=== PATIENT | male | born 1975 | race Caucasian/White ===

== ENCOUNTER 2017-08-21 10:40 | Inpatient (IN) ==
[2017-08-21 11:33] LABS: Basophils # 0.1 K/mcL (0.0-0.2); Basophils % 0.5 %; Eosinophils # 0.2 K/mcL (0.0-0.6); Eosinophils % 1.5 %; Hematocrit 47.6 % (37.5-50.1); Hemoglobin 15.9 g/dL (12.9-16.9); Immature Granulocytes % 0.3 % (0-4); Lymphocytes # 2.6 K/mcL (0.6-4.6); Lymphocytes % 23.6 %; Mean Corpuscular HGB Conc 33.4 g/dL (31.6-35.5); Mean Corpuscular Hemoglobin 30.2 pg (28.0-33.3); Mean Corpuscular Volume 90.3 fL (83.0-100.0); Monocytes # 0.8 K/mcL (0.0-1.3); Monocytes % 7.2 %; Neutrophils # 7.3 K/mcL (1.6-8.9); Platelet Count 329 K/mcL (140-400); Red Blood Count 5.27 M/mcL (4.19-5.50); Red Cell Distribution Width 13.3 % (11.5-14.5); Segmented Neutrophils % 66.9 %
[2017-08-21 11:38] LABS: Prothrombin Time 11.1 Seconds (9.4-12.1)
[2017-08-21 11:40] LABS: Activated Partial Thrombo Time 31.5 Seconds (26.0-36.0)
--- NOTE | 2017-08-21 11:43 | Electrocardiograph Report ---
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
[2017-08-21 11:56] LABS: Troponin I 0.03 ng/mL (< 0.04)
[2017-08-21 12:13] LABS: BUN/Creatinine Ratio 12 (6-26); Blood Urea Nitrogen 12 mg/dL (6-20); Calcium 9.5 mg/dL (8.6-10.3); Carbon Dioxide 27 mEq/L (23-29); Chloride 107 mEq/L (98-107); Glucose 116 mg/dL (70-105); Osmolality,Calculated 289 (280-300); Potassium 4.4 mEq/L (3.5-5.1); Sodium 139 mEq/L (136-145); eGFR For African Americans > 60 (> 60); eGFR For Non-African Americans > 60 (> 60)
--- NOTE | 2017-08-21 12:22 | Emergency Department Note ---
Disposition Clinical Impression: Chest pain, rule out acute myocardial infarction Disposition: Admitted As Inpatient Condition: Fair Chest Pain HPI - General Chief Complaint: ED Chest Pain Stated Complaint: CP x 1 week Time Seen by Provider: 08/21/17 11:09 Source: patient Limitations: no limitations Vital Signs Reviewed: Yes Nursing Notes Reviewed: Yes - History of Present Illness HPI Narrative: 42-year-old male presents emergency Department with concerns of chest pain. Patient states pain is exertional and improves with rest. No history of cardiac disease in the past. Patient states symptoms have been increasing over the past week. He reports associated diaphoresis and nausea. Denies syncopal event. Chest pain is a pressure in the center of his chest that radiates to his bilateral arms. Severity scale (1-10): 0 - Related Data Home Medications Medication Instructions Recorded Confirmed No Known Home Drugs 08/21/17 08/21/17 Allergies Allergy/AdvReac Type Severity Reaction Status Date / Time azithromycin [From Zithromax] Allergy Rash Verified 08/21/17 10:47 All systems ED: reviewed and negative except as stated. Review of Systems: As Per HPI Chest Pain PMH - Past Medical History Medical history: Reports: no medical history Psychiatric history: Reports: no psych history - Social History Smoking Status: Current every day smoker Alcohol use: Reports: none Drug use: Reports: none Physical Exam General: Alert and in no acute distress Skin: Warm, dry, intact Head: Normocephalic and atraumatic Neck: Supple, trachea midline and no tenderness Cardiovascular: RRR, no murmur, normal perfusion Respiratory: CTAB, no wheezing, cough, or respiratory distress Musculoskeletal: Normal strength, no tenderness, swelling or deformity GI: Soft, nontender, nondistended. Bowel sounds present Neuro: A&O to person, place, time and situation. No focal deficits noted on exam Psychiatric: cooperative and appropriate mood and affect. - General Limitations: no limitations General appearance: alert Course Vital Signs Temperature 98.5 F 08/21/17 10:48 Pulse Rate 62 08/21/17 10:48 Respiratory Rate 20 08/21/17 10:48 Blood Pressure 152/78 08/21/17 10:48 O2 Sat by Pulse Oximetry 98 08/21/17 10:48 Temperature 98.2 F 08/22/17 11:12 Pulse Rate 67 08/22/17 11:12 Respiratory Rate 20 08/22/17 11:12 Blood Pressure 145/84 08/22/17 11:12 O2 Sat by Pulse Oximetry 95 08/22/17 11:12 Oxygen Delivery Oxygen Delivery Room Air Chest Pain - MDM Narrative Medical decision making narrative: Patient has a negative initial troponin. EKG did not show evidence of STEMI. - Medical Records Medical records reviewed: Yes I reviewed the patient's medical records. - Lab Data Lab results reviewed: Yes I reviewed the patient's lab results. Result diagrams: 08/21/17 11:19 08/21/17 11:19 Lab Results 08/21/17 08/21/17 08/21/17 Range/Units 11:19 11:19 11:19 WBC 10.9 (4.3-11.1) K/mcL RBC 5.27 (4.19-5.50) M/mcL Hgb 15.9 (12.9-16.9) g/dL Hct 47.6 (37.5-50.1) % MCV 90.3 (83.0-100.0) fL MCH 30.2 (28.0-33.3) pg MCHC 33.4 (31.6-35.5) g/dL RDW 13.3 (11.5-14.5) % Plt Count 329 (140-400) K/mcL MPV 10.0 (9.4-12.4) fL Immature Gran % 0.3 (0-4) % Seg Neutrophils % 66.9 % Lymphocytes % 23.6 % Monocytes % 7.2 % Eosinophils % 1.5 % Basophils % 0.5 % Neutrophils # 7.3 (1.6-8.9) K/mcL Lymphocytes # 2.6 (0.6-4.6) K/mcL Monocytes # 0.8 (0.0-1.3) K/mcL Eosinophils # 0.2 (0.0-0.6) K/mcL Basophils # 0.1 (0.0-0.2) K/mcL PT 11.1 (9.4-12.1) Seconds INR 1.0 APTT 31.5 (26.0-36.0) Seconds Sodium 139 (136-145) mEq/L Potassium 4.4 (3.5-5.1) mEq/L Chloride 107 (98-107) mEq/L Carbon Dioxide 27 (23-29) mEq/L BUN 12 (6-20) mg/dL Creatinine 1.03 (0.70-1.30) mg/dL Est GFR ( Amer) > 60 (> 60) Est GFR (Non-Af Amer) > 60 (> 60) BUN/Creatinine Ratio 12 (6-26) Glucose 116 H (70-105) mg/dL Calculated Osmolality 289 (280-300) Calcium 9.5 (8.6-10.3) mg/dL Troponin I 0.03 (< 0.04) ng/mL - Radiology Data Radiology results reviewed: Yes I reviewed the patient's radiology results. - EKG Data EKG attestation: Yes I reviewed and interpreted this EKG. EKG results narrative: ECG - interpreted by ED physician. Rate 65, normal sinus rhythm, no STEMI. Biphasic T-wave in lead V2 Heart Score - Score History: Highly Suspicious EKG: Normal Age: Less than 45 Risk Factors: Equal/Greater than 3 risk factor or history of atherosclerotic disease Troponin: Less than normal limit HEART Score Total: 4
[2017-08-21] MEDS ORDERED: Aspirin 81 MG TAB.CHEW PO ONE (12:23)
[2017-08-21] MEDS ORDERED: Naloxone 0.4 MG/ML INJ IVP PRN (12:58)
--- NOTE | 2017-08-21 13:07 | Internal Med History&Physical ---
<Nick Ingram J - Last Filed: 08/21/17 13:00> Date of Encounter: 08/21/17 Time of Encounter: 13:00 Internal Medicine - H&P: [facility] Chief complaint: chest pain Admitted From: Home Plans for Post Hospital Care: Home History of present illness: Mr. Wilson is a 42 year old male with no prior past medical history. Presents to [facility] ED with a chief complaint of one-week history of intermittent chest pain. He states that he has been having occasional chest pain with exertion and eases with rest. He notes that there are times he is able to perform physical activity without any discomfort. However when he experiences the pain it is sharp and 10/10 with radiation to the BL shoulder and arms. He is reporting shortness of breath, diaphoresis and nausea. He has no prior cardiac hx and has never had a thorough cardiac workup. He is currently chest pain free at rest. His CXR is negative for acute pulmonary disease, initial troponin is negative. EKG does show some ST depression in V3 but is not noted in any other leads. No prior EKG for comparison. Past Med Surg Social Fam HX - Past Medical History Medical history: no medical history Psychiatric history: no psych history - Social History Smoking Status: Current every day smoker Smokeless Tobacco Status: No Alcohol use: none Drug use: none - Family History Mother Hx Family Cardiac Disorders: Yes ([place]) Hx Family Endocrine Disorder: Yes ([place]) Internal Medicine - H&P: Meds No Known Home Drugs 08/21/17 [History] 3 Allergy/AdvReac Type Severity Reaction Status Date / Time azithromycin [From Zithromax] Allergy Rash Verified 08/21/17 10:47 All Systems PM: A 10-system review of systems was performed and is negative for pertinent findings except as documented above in the HPI. Review of systems: REVIEW OF SYSTEMS GENERAL: Negative for any nausea, vomiting, fevers, chills, or weight loss. Positive for diaphoresis and nausea NEUROLOGIC: Negative for any blurry vision, blind spots, double vision, facial asymmetry, dysphagia, dysarthria, hemiparesis, hemisensory deficits, vertigo, ataxia. HEENT: Negative for any head trauma, neck trauma, neck stiffness, photophobia, phonophobia, sinusitis, rhinitis. CARDIAC: Negative for any paroxysmal nocturnal dyspnea, peripheral edema. Positive for chest pain which worsens with exertion and improves rest. Additionally reporting shortness of breath PULMONARY: Negative for any wheezing, COPD, or TB exposure. GASTROINTESTINAL: Negative for any abdominal pain, nausea, vomiting, bright red blood per rectum, melena. GENITOURINARY: Negative for any dysuria, hematuria, incontinence. INTEGUMENTARY: Negative for any rashes, cuts, insect bites. RHEUMATOLOGIC: Negative for any joint pains, photosensitive rashes, history of vasculitis or kidney problems. HEMATOLOGIC: Negative for any abnormal bruising, frequent infections or bleeding. - Constitutional Vitals: Temp Pulse Resp BP Pulse Ox 98.5 F 68 20 136/88 98 08/21/17 10:48 08/21/17 11:36 08/21/17 10:48 08/21/17 11:36 08/21/17 10:48 General appearance: Present: cooperative, A&O X 3, no acute distress Exam: PHYSICAL EXAMINATION: GENERAL: The patient is a well-developed, well-nourished male in no apparent distress. He is alert and oriented x3. HEENT: Head is normocephalic and atraumatic. Extraocular muscles are intact. Pupils are equal, round, and reactive to light and accommodation. NECK: Supple. No carotid bruits. No lymphadenopathy or thyromegaly. LUNGS: Clear to auscultation B/L AP and L. HEART: Regular rate and rhythm without murmur. ABDOMEN: Soft, nontender, and nondistended. Positive bowel sounds. No hepatosplenomegaly was noted. EXTREMITIES: Without any cyanosis, clubbing, rash, lesions or edema. NEUROLOGIC: Mild left-sided facial droop and paralysis noted. 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 SKIN: No ulceration or induration present. Internal Med - H&P Results - Labs CBC & Chem 7: 08/21/17 11:19 08/21/17 11:19 - EKG Data -: EKG Interpreted by Myself EKG shows normal: sinus rhythm - Impressions Impressions Chest X-Ray 08/21/17 11:10 IMPRESSION: No acute findings. D/ / Emilee Ridley MD / Emilee Ridley MD Interpreting Provider: Emilee Ridley MD - Assessment and plan (1) Chest pain Current Visit: Yes Status: Acute Assessment and plan: ASSESSMENT: Presents today with one-week history of exertional chest pain. He is reporting sharp chest pain with radiation to B/L shoulder and arms with activity and notes that is does improve with rest. He has never had an LHC but reports a TTE and stress a few years ago which were unremarkable. No history of CAD. His CXR was negative for an acute pulmonary process and his initial troponin was negative at 0.03. The EKG did show some ST depression in V3 but not other leads. No prior EKG for comparison. PLAN: - cardiac enzymes x 2 q 6 hr - EKG now and in AM - ASA - Simvastatin - O2 by NC to keep SpO2 greater than 92% - CBCD, BMP in AM - Fasting lipids - Heparin 5000 U SQ BID - 2D Echo - Cardiology consult-pending results of further cardiac workup Qualifiers: Chest pain type: unspecified Qualified Code(s): R07.9 - Chest pain, unspecified (2) DVT prophylaxis Current Visit: Yes Status: Acute Assessment and plan: Heparin 5000 units SC BID - Time Spent With Patient Total time spent is greater than 50% in coordination of care (as documented) at patient's floor/unit and/or counseling patient: 25 - 35 minutes <José Miguel Rodriguez P - Last Filed: 08/21/17 21:34> Date of Encounter: 08/21/17 Internal Medicine - H&P: HPI History of present illness: Mr. Wilson is a 42 year old male All Systems PM: A 10-system review of systems was performed and is negative for pertinent findings except as documented above in the HPI. - Constitutional Vitals: Temp Pulse Resp BP Pulse Ox 97.6 F 86 18 112/67 93 08/21/17 19:02 08/21/17 19:02 08/21/17 19:02 08/21/17 19:02 08/21/17 19:02 Internal Med - H&P Results - Labs CBC & Chem 7: 08/21/17 11:19 04/17/18 11:19 Labs: Cardiac Enzymes 08/21/17 Range/Units 15:38 Troponin I 0.03 (< 0.04) ng/mL - Attending Attestation I performed a history and physical exam of the patient and discussed his management with CLOTH FOLDER MACHINE. I reviewed the CLOTH FOLDER MACHINE's note and agree with the documented findings and plan of care. Briefly, patient is a 42 y/o WM who presented to ED with 1 -week history of intermittent chest pain with exertion. Also, had some SOB, diaphoresis, and nausea. He has no cardiac history. He is currently chest pain free during my interview. Will admit for ACS rule-out with trending of troponin and repeat EKG in AM. PE: Gen - Awake, alert, NAD HEENT - NCAT, PERRLA, EOMI, hearing grossly intact, oropharynx benign CV - RRR, normal S1 and S2, no M/R/G, no BLE edema Resp - CTAB, no W/R/R, normal WOB Skin - Warm, dry, no rashes/lesions/ulcers Psych - Normal mood and affect, no depression or anxiety José Miguel Rodriguez MD - Assessment and plan (1) Chest pain Current Visit: No Status: Acute Qualifiers: Chest pain type: unspecified Qualified Code(s): R07.9 - Chest pain, unspecified (2) DVT prophylaxis Current Visit: No Status: Acute - Time Spent With Patient Total time spent is greater than 50% in coordination of care (as documented) at patient's floor/unit and/or counseling patient:
[2017-08-21] MEDS: *HR* Heparin 5,000 UNIT/ML VIAL SQ SCH (18:19)
[2017-08-22] MEDS: *HR* Heparin 5,000 UNIT/ML VIAL SQ SCH ×2 (05:32→18:00)
[2017-08-22 05:42] LABS: Chol/HDL Ratio 5.2 (0-4.9)
[2017-08-22] MEDS ORDERED: Regadenoson 0.4 MG/5 ML SYRINGE IVP ONE (09:01)
[2017-08-22] MEDS: Aspirin 81 MG TAB.CHEW PO SCH (11:47)
--- NOTE | 2017-08-22 13:58 | Cardiology Consult Note ---
Date of Encounter: 08/22/17 Time of Encounter: 13:45 Assessment and Plan (1) Abnormal stress test Current Visit: Yes Status: Acute Presented with intermittent chest pain over the past week, worse on exertion, radiates to BL upper extremities, associated with dyspnea, nausea, diaphoresis. Troponin negative x 2. EKG no significant ischemic change. Underwent stress test this AM, ST depression in the anterolateral and inferior leads in recovery suggestive of ischemia. Gated EF 49%. Large sized, moderate to absent perfusion defect, mostly reversible involving mid anterior, mid anteroseptum, all apical segments, and apex segments strongly suggestive of ischemia. SDS 15. Recommend [facility]. R/B/A discussed. Pt agrees to proceed. [facility] today. Risk factors for CAD include tobacco abuse and family hx. On ASA. Start Statin and BB. (2) Chest pain Current Visit: Yes Status: Acute As above, negative troponin, but with abnormal stress. [facility] today. Qualifiers: Chest pain type: unspecified Qualified Code(s): R07.9 - Chest pain, unspecified (3) Atrial tachycardia Current Visit: Yes Status: Acute PAT noted during stress and telemetry. Add BB. Discussion w patient/family: The assessment and plan as outlined above was discussed with the patient and/or family members who expressed understanding and agreement. All questions were answered. Thank you for involving us in the care of your patient. Please call with any questions. History of Present Illness Consult date: 08/22/17 Requesting physician: Smiley Crisostomo Consult reason: abnormal stress test Chief complaint: chest pain History of present illness: Mr. Wilson is a 42 year old male with PMH of tobacco abuse that presented to ED with chief complaint of one-week history of intermittent chest pain. He states that he has been having occasional chest pain with exertion and eases with rest. He notes that there are times he is able to perform physical activity without any discomfort. However when he experiences the pain it is sharp and 10/10 with radiation to the BL shoulder and arms. He is reporting shortness of breath, diaphoresis and nausea. He has no prior cardiac hx. Reports he had a negative stress test approximately 3 years ago. Troponins are negative, TTE EF preserved. Underwent stress test this AM, ST depression in the anterolateral and inferior leads in recovery suggestive of ischemia. Gated EF 49 %. Large sized, moderate to absent perfusion defect, mostly reversible involving mid anterior, mid anteroseptum, all apical segments, and apex segments strongly suggestive of ischemia. SDS 15. Cardiology consulted for further recs. Currently chest pain free. Past Med Surg Social Fam HX - Past Medical History Medical history: no medical history Psychiatric history: no psych history - Past Surgical History Surgical History: herniorrhaphy - Social History Smoking Status: Current every day smoker Smokeless Tobacco Status: No Alcohol use: none Drug use: none - Family History Mother Hx Family Cardiac Disorders: Yes ([place]) Hx Family Endocrine Disorder: Yes ([place]) Medications and Allergies No Known Home Drugs 08/21/17 [History] 3 Allergy/AdvReac Type Severity Reaction Status Date / Time azithromycin [From Zithromax] Allergy Rash Verified 08/21/17 10:47 All Systems Review: The remainder of the systems were reviewed and are negative - Cardiovascular Cardiovascular: as per HPI, chest pain at rest, chest pain with exertion, diaphoresis, dyspnea on exertion, radiating jaw, neck or arm pain - Respiratory Respiratory: dyspnea - Gastrointestinal Gastrointestinal: nausea Physical Examination Vital Signs, Last 4 Hours Temp Pulse Resp BP Pulse Ox 08/22/17 11:12 98.2 F 67 20 145/84 95 Vital Signs Temp Pulse Resp BP Pulse Ox 08/22/17 11:12 98.2 F 67 20 145/84 95 08/22/17 07:18 98.4 F 60 20 128/73 97 08/22/17 04:27 97.5 F L 60 19 110/71 95 08/21/17 22:42 98.4 F 74 19 101/62 97 08/21/17 19:02 97.6 F 86 18 112/67 93 Intake and Output 08/21/17 08/22/17 08/22/17 23:59 07:59 15:59 Intake Total 0 / 0 Balance 0 / 0 Intake: Oral 0 / 0 Other: Meal npo # Voids 2 Weight 103.5 kg Patient Weight 08/22/17 23:59 Weight 103.5 kg General: Conversant, No Apparent Distress HEENT: Atraumatic, Normocephaly, Mucus Membranes Moist Neck: No JVD, Normal carotid pulses Cardiac: Reg Rate and Rhythm, Normal S1 and S2, No Murmur Lungs: Normal Breath Sounds, No Wheeze, Rales, Rhonchi Neuro: Alert and responsive, No focal deficits noted Abdomen: Soft, Non-Tender Skin: No rashes noted on visualized skin Musculoskeletal: No Chest Wall Tenderness Extremities: No Clubbing, No Cyanosis, No Edema, Normal Pulses Results 08/21/17 11:19 08/21/17 11:19 Lab Results 08/21/17 08/21/17 15:38 21:56 Troponin I 0.03 < 0.03 Cardiac Enzymes 08/21/17 08/21/17 Range/Units 21:56 15:38 Troponin I < 0.03 0.03 (< 0.04) ng/mL Impressions Echocardiogram 08/22/17 12:55 Impressions: LVEF 55-60%. Normal LV chamber size, wall thickness and function. Normal right ventricular structure and function. No evidence of pulmonary hypertension. No significant valvular dysfunction. Left Ventricular Wall Motion: Rest Echo Findings All wall segments showed normal motion. Findings: Study Quality * Technically adequate exam. ECG Findings * Sinus bradycardia. Left Ventricle * LVEF 55-60%. * Normal LV chamber size, wall thickness and function. Right Ventricle * Normal right ventricular structure and function. Left Atrium * Mild to moderately dilated left atrium. Right Atrium * Mildly dilated right atrium. Interatrial Septum * Interatrial septum not well evaluated. Aortic Valve * Trileaflet aortic valve with normal function. * No aortic stenosis. * No aortic regurgitation. Mitral Valve * Normal mitral valve structure and function. * No mitral stenosis. * Trace mitral regurgitation. Tricuspid Valve * Normal tricuspid valve structure and function. * Trace tricuspid regurgitation. * No evidence of pulmonary hypertension. Pulmonic Valve * Normal pulmonic valve structure and function. * No pulmonic regurgitation. Aorta * Normally sized aortic root. Pericardium * The pericardium appears normal. IVC * Normal IVC dimensions and inspiratory collapse. Pulmonary Artery * Normal visualized portions of the main pulmonary artery. Active Medications Aspirin (Aspirin) 81 mg PO DAILY [facility] Stop: 02/21/18 09:01 Last Admin: 08/22/17 11:47 Dose: 81 mg Heparin Sodium (Porcine) (Heparin) 5,000 unit SQ Q12HCO [facility] Stop: 02/20/18 18:01 Last Admin: 08/22/17 05:32 Dose: 5,000 unit Naloxone HCl (Narcan) 0.4 mg IVP Q2MIN PRN PRN Reason: SEE COMMENTS Stop: 02/20/18 12:59 - Imaging and Cardiology Stress Test: report reviewed Echo: report reviewed - EKG Interpretation EKG results cardiology: personally reviewed, other (12 hr tele AVG HR 67, SR, episodes of atrial tach.) Consult Discharge Plan - Plan Referrals: Jacky Roque MD [Primary Care Provider] -
--- NOTE | 2017-08-22 15:18 | Internal Med Progress Note ---
Date of Encounter: 08/22/17 Time of Encounter: 15:13 - Assessment and plan (1) Chest pain Current Visit: Yes Status: Acute Assessment and plan: ASSESSMENT: Presented with one-week history of exertional chest pain. He was reporting sharp chest pain with radiation to B/L shoulder and arms with activity and noted that did improve with rest. He has never had an C but reported a TTE and stress a few years ago which were unremarkable. No history of CAD. CXR was negative for an acute pulmonary process and troponin negative at 0.03. The EKG did show some ST depression in V3 but not in other leads. No prior EKG for comparison. PLAN: - cardiac enzymes negative - EKG - ASA - Simvastatin - O2 by NC to keep SpO2 greater than 92% - CBCD, BMP reviewed - Fasting lipids reviewed - Heparin 5000 U SQ BID - 2D Echo - Cardiology consult for abnormal stress test with [facility] scheduled Qualifiers: Chest pain type: unspecified Qualified Code(s): R07.9 - Chest pain, unspecified (2) DVT prophylaxis Current Visit: No Status: Acute Assessment and plan: Heparin 5000 units SC (3) Hypokalemia Current Visit: Yes Status: Acute Assessment and plan: replaced and recheck - Time Spent With Patient Total time spent is greater than 50% in coordination of care (as documented) at patient's floor/unit and/or counseling patient: - Subjective Interval history: Patient resting in bed quietly. Still with intermittent chest pain at times. Abnormal stress test resulted and cardiology consult it. They discussed left heart cath with the patient and he has agreed. - Constitutional Vitals: Temp Pulse Resp BP Pulse Ox 98.1 F 56 18 126/77 94 08/22/17 14:53 08/22/17 14:53 08/22/17 14:53 08/22/17 14:53 08/22/17 14:53 General appearance: Present: cooperative, A&O X 3, pleasant, answers questions appropriately - Head Head exam: Present: atraumatic, normocephalic - Eye Eye exam: Present: PERRL, conjuntiva pink, sclera anicteric Pupils: Present: PERRL - Neck Neck exam general surgery: Present: supple, trachea midline. Absent: lymphadenopathy - Respiratory Respiratory exam: Present: CTAB. Absent: accessory muscle use, rales, rhonchi, wheezes - Cardiovascular Cardiovascular exam: Present: RRR, +S1, +S2. Absent: diastolic murmur, gallop, rubs, systolic murmur - GI/Abdominal GI/Abdominal exam: Present: normal bowel sounds, soft, no peritoneal signs. Absent: distended, tenderness - Extremities Exam Extremities exam: Present: warm, radial pulses palpable and symmetrical. Absent : calf tenderness, cyanotic, pedal edema - Neurological Exam Neurological exam: Present: alert, CN II-XII intact, oriented X3, no focal deficits. Absent: pronater drift, facial droop, speech deficit - Skin Skin exam: Present: dry, intact, normal color, warm Internal Medicine: Result - Labs CBC & Chem 7: 08/21/17 11:19 08/21/17 11:19 Labs: Cardiac Enzymes 08/21/17 08/21/17 Range/Units 15:38 21:56 Troponin I 0.03 < 0.03 (< 0.04) ng/mL - ABG Interpretation ABG results: PT/INR, D-dimer PT 11.1 Seconds (9.4-12.1) 08/21/17 11:19 - Impressions Impressions Echocardiogram 08/22/17 12:55 Impressions: LVEF 55-60%. Normal LV chamber size, wall thickness and function. Normal right ventricular structure and function. No evidence of pulmonary hypertension. No significant valvular dysfunction. Left Ventricular Wall Motion: Rest Echo Findings All wall segments showed normal motion. Findings: Study Quality * Technically adequate exam. ECG Findings * Sinus bradycardia. Left Ventricle * LVEF 55-60%. * Normal LV chamber size, wall thickness and function. Right Ventricle * Normal right ventricular structure and function. Left Atrium * Mild to moderately dilated left atrium. Right Atrium * Mildly dilated right atrium. Interatrial Septum * Interatrial septum not well evaluated. Aortic Valve * Trileaflet aortic valve with normal function. * No aortic stenosis. * No aortic regurgitation. Mitral Valve * Normal mitral valve structure and function. * No mitral stenosis. * Trace mitral regurgitation. Tricuspid Valve * Normal tricuspid valve structure and function. * Trace tricuspid regurgitation. * No evidence of pulmonary hypertension. Pulmonic Valve * Normal pulmonic valve structure and function. * No pulmonic regurgitation. Aorta * Normally sized aortic root. Pericardium * The pericardium appears normal. IVC * Normal IVC dimensions and inspiratory collapse. Pulmonary Artery * Normal visualized portions of the main pulmonary artery. Consult Discharge Plan - Plan Referrals: Jacky Roque MD [Primary Care Provider] -
[2017-08-22] MEDS ORDERED: Heparin 1,000 UNITS/500 mL 500 ML ONE (16:03)
[2017-08-22] MEDS ORDERED: *HR* Heparin 10,000 UNIT/10 ML VIAL ONE (16:03)
[2017-08-22] MEDS ORDERED: ISOVUE-370 200 ML INFUS..BTL IV ONE (16:03)
[2017-08-22] MEDS ORDERED: 0.9 % Sodium Chloride 1,000 ML ONE (16:04)
[2017-08-22] MEDS ORDERED: Nitroglycerin 1,000 MCG/10 ML VIAL IV ONE (16:04)
--- NOTE | 2017-08-22 16:34 | Pre-Sedation Evaluation ---
Pre-sedation evaluation - Pre-sedation checklist Date of procedure: 08/22/17 Procedure: [facility] Recent Vitals: Last Vital Signs Temp 98.1 F 08/22/17 14:53 Pulse 56 08/22/17 14:53 Resp 18 08/22/17 14:53 BP 126/77 08/22/17 14:53 Pulse Ox 94 08/22/17 14:53 H&P (including ROS) documented in medical record: Yes Previous reaction to sedatives/anesthetics: No Dietary Status: NPO after Midnight Airway Assessment: Patient can open mouth completely, TMJ function normal, Micrognathia (under-bite, receding chin) absent, Neck with adequate range of motion Dentition: No loose teeth or bridges Possible difficult airway: No ASA Classification *see protocol: CLASS II-Mild systemic disease Plan of Care: Pt appropriate candidate for procedure/moderate/conscious sedation , Risks/benefits of procedure/sedation discussed w/ patient/family
[2017-08-22] MEDS ORDERED: *HR* Bivalirudin 250 MG VIAL IVC ONE (16:38)
[2017-08-22] MEDS ORDERED: *HR* Midazolam HCl 2 MG/2 ML VIAL ONE (16:38)
[2017-08-22] MEDS ORDERED: *HR* FentaNYL (PF) 100 MCG/2 ML VIAL ONE (16:39)
[2017-08-22] MEDS ORDERED: *HR* Ticagrelor 90 MG TABLET ONE (17:08)
--- NOTE | 2017-08-22 17:36 | Invasive Diagnostic Lab Proc ---
Name: Patrick Wilson Date of Study: 08/22/2017 Date: 1975 Ht: 72.8in Medical Record#: [id number] Age: 42 Wt: 227.08lb Gender: Male BSA: 2.27 Order #: [id number] BMI: 30.09 Physicians Procedure Physician: Lianet Cao MD, [facility] Referring MD: Referring MD: Staff Name Position Time In Cathryn Wilson RN Monitor 04:33 PM Jennifer Grant RT (R) Scrub 04:33 PM Jt Rowell RN Monitor 04:35 PM Cathryn Wilson RN Funeral Prearrangement Counselor 04:36 PM Ananya Llanes RN Funeral Prearrangement Counselor 05:16 PM Indications Indication Abnormal Test - Stress Procedures Performed Procedure L HRT ARTERY/VENTRICLE ANGIO PRQ CARD MARGRET STENT W/ANGIO 1 VSL Pre-Procedure Checklist Informed consent is complete signed and on chart. H&P is on chart. ID band is on and ID verified with patient. Patient NPO for procedure The procedure was described for the patient and questions were answered. ECG is on chart. Plan of Care Patient will tolerate the procedure without complications. Adequate level of comfort will be maintained. Hemodynamics will remain stable Patient will recover from procedure without complications. Respiratory function will be maintained. Cardiac rhythm will remain stable. Patient temperature will be maintained. Patient and/or family have verbalized understanding of the procedure. Patient Education Chief Complaint/Reason for Test: Cardiac Cath Developmental Category: Adult (18-64 years) Developmentally Appropriate for Age: Yes Learning Barriers: None Education Needs: Procedure Education Method: Verbal Information Taught: Cardiac Cath Educational Evaluation: Able to repeat information Intravenous Access Time IV Size Location DC'd Fluid/Drip Rate Units RN 20g 1 /" Patent On Arrival Rt Antecubital 0.9NaCl ml/hr Allergies azithromycin Vital Signs Time BP (mmHg) HR (bpm) O2 Sat. RR (bpm) LOC 04:38 PM / % 5 = Fully awake and oriented or at pre-proc level 04:38 PM / % 4 = Oriented but drowsy 04:53 PM / % 4 = Oriented but drowsy 04:38 PM 132 / 78 60 97 % 04:42 PM 132 / 71 64 96 % 04:47 PM 125 / 72 71 96 % 04:52 PM 127 / 71 62 96 % 04:57 PM 134 / 72 63 96 % 05:02 PM 123 / 67 67 96 % 05:07 PM 124 / 69 70 95 % 05:12 PM 127 / 71 62 98 % 05:17 PM 124 / 64 56 98 % Procedural Medications Time Medication Dose Units Method Given By 04:36 PM Oxygen 2 L/min nasal cannula Cathryn Wilson RN 04:41 PM Versed 2 mg Intravenous Cathryn Wilson RN 04:41 PM Fentanyl 50 mcg Intravenous Cathryn Wilson RN 04:49 PM Benadryl 25 mg Intravenous Cathryn Wilson RN 04:51 PM Lidocaine 2% 13 ml Subcutaneous Lianet Cao MD, FAC 04:57 PM Angiomax 0.75mg/kg bolus: 16 ml Intravenous Cathryn Wilson RN 04:58 PM Angiomax 1.75mg/kg/hr: 37 ml/hr Intravenous Cathryn Wilson RN 05:06 PM Nitroglycerin 200 mcg Intracoronary Lianet Cao MD, FACC 05:13 PM Reopro Bolus: 12.9 ml Intravenous Cathryn Wilson RN 05:13 PM Brilinta 180 mg Orally Cathryn Wilson RN ASA Classification: CLASS II- Mild systemic disease (i.e. well-controlled diabetes, hypertension, asthma, cigarette smoking) Nanci Score Preprocedure Postprocedure Activity 2- Moves 4 extremities sustained head lift Activity 2- Moves 4 extremities sustained head lift Circulation 2- SBP +/= 20 points of pre-anesthetic level Circulation 2- SBP +/= 20 points of pre-anesthetic level Consciousness 2- Awake and alert oriented x 3 Consciousness 2- Awake and alert oriented x 3 O2 Saturation 2- Able to maintain O2 satruation of 92% on room air O2 Saturation 2- Able to maintain O2 satruation of 92% on room air Respiratory 2- Able to deep breathe and cough well Respiratory 2- Able to deep breathe and cough well Total Score 10 Total Score 10 Contrast Agent: Isovue Diagnostic Contrast: 74 ml Total Contrast: 74 ml Fluoro Dose: 332 mGy Procedure Log Time Note Enter By 04:18 PM Pt arrived to label paster 2 at 16:18 fainabel air 04:33 PM Pt arrived to label paster 2 at 16:33 oh 04:33 PM Cathryn Wilson RN Position: Monitor Time in: 16:33 oh 04:33 PM Juanita, Jennifer RT (R) Position: Scrub Time in: 16:33 04:33 PM Patient charges- Angio tray pack, Navilyst 3mm J, Pulse Oximetry and ACIST tubing and transducer 04:33 PM Physican paged/called 16:33. 04:33 PM Physican responded and notified patient is ready 16:33 04:33 PM Physician arrived 16:33 :33 PM Meet and greet completed 04:33 PM Sign in performed according to hospital policy. 04:33 PM Procedure start 16:33 04:33 PM CathStat 04:36 PM Jt Rowell RN Position: Monitor Time in: 16:35 04:36 PM Cathryn Wilson RN Position: Funeral Prearrangement Counselor [facility]: 16:36 [facility] 04[facility] PM Time: 16:36 Oxygen on at 2 L/min per nasal cannula by Cathryn Wilson RN [email or web address] 04:37 PM Vitals capture started with the following parameters, Patient=Adult, Interval=5 min, Initial Nmqjfnzq=128 mmHg, Deflation Rate=5 mmHg, Cuff placed on Right Arm 04:37 PM Recorded ECG: HR=63 Condition=Condition 1 04:38 PM HR=60 bpm, JMAG=842/78 mmhg, SpO2=97.0 %, Comment=nsr 04:38 PM Time: 16:38 Patient comfortable and pain free: Yes [facility] 04:38 PM Time: 16:38LOC: 5 = Fully awake and oriented or at pre-proc level [facility] 04:39 PM Clinical Presentation: Unstable angina 04:39 PM ASA Class CLASS II- Mild systemic disease (i.e. well-controlled diabetes, hypertension, asthma, cigarette smoking) [facility] 04:41 PM Time: 16:41 Versed 2 mg Intravenous Given by Cathryn Wilson RN dina 04:41 PM Time: 16:41 Fentanyl 50 mcg Intravenous Given by Cathryn Wilson RN 04:42 PM HR=64 bpm, JXTQ=397/71 mmhg, SpO2=96.0 %, Comment=nsr 04:47 PM HR=71 bpm, GWFB=770/72 mmhg, SpO2=96.0 %, Comment=nsr 04:48 PM Time out performed according to hospital policy tsoumm 04:49 PM Time: 16:49 Benadryl 25 mg Intravenous Given by Cathryn Wilson RN tsoumm 04:51 PM Time: 16:51 13 ml Lidocaine 2% to right groin Subcutaneous Given by Lianet Cao MD, [facility] tsoummers 04:52 PM Access obtained by percutaneous puncture. 5Fr 10cm Terumo Lillian sheath placed in right Femoral artery. [id number] tsoummers 04:52 PM 5Fr FL 4 catheter inserted over the wire [facility] tsoummers 04:52 PM HR=62 bpm, HMXD=799/71 mmhg, SpO2=96.0 % 04:52 PM LCA angiography performed in multiple views. tsoummers 04:53 PM Time: 16:38 Patient comfortable and pain free: Yes tsoummers 04:53 PM Time: 16:38LOC: 4 = Oriented but drowsy tsoummers 04:54 PM [ Start or Stop Vital ] 04:55 PM Catheter removed tsoummers 04:55 PM 5Fr FR 4 catheter inserted over the wire [facility] tsoummers 04:55 PM RCA angiography performed in multiple views. tsoummers 04:55 PM Catheter removed tsoummers 04:55 PM Lesion found in Proximal LAD. Pre Stenosis: 99 Pre EVELYN Flow: 3: Complete and Brisk Flow/Perfusion tsoummers 04:55 PM Proximal Left Anterior Descending Coronary Artery with 99% stenosis. If graft is supplying this territory, 0 % stenosis. tsoummers 04:56 PM PCI Status Urgent tsoummers 04:56 PM PCI Indication: PCI for high risk Non-STEMI or unstable angina tsoummers 04:56 PM Inflation device was opened. tsoummers 04:56 PM Vitals capture stopped. 04:56 PM Vitals capture started with the following parameters, Patient=Adult, Interval=5 min, Initial Msfftwoe=807 mmHg, Deflation Rate=5 mmHg, Cuff placed on Right Arm 04:57 PM HR=63 bpm, KTZO=515/72 mmhg, SpO2=96.0 %, Comment=nsr 04:57 PM Sheath exchanged for a 6 Fr 10 cm Terumo Lillian sheath [id number] thomas 04:58 PM Time: 16:57 Angiomax 0.75mg/kg bolus: 16 ml Intravenous Given by Cathryn Wilson RN Rodrigez pump margaritothomas 04:58 PM Time: 16:58 Angiomax 1.75mg/kg/hr: 37 ml/hr Intravenous Given by Cathryn Wilson RN Rodrigez pump dina 04:59 PM .014 Prowater 180cm guide wire across target lesion- successful. reused? No mm 05:00 PM 6Fr XB LAD 3.5 Cordis guide catheter was used to cannulate the PCI vessel successfully. reused? No mm 05:00 PM 3.5mm x 12mm Synergy drug-eluting stent across target lesion- successful Lot #[id number] 05:00 PM Ananya Llanes RN Position: Funeral Prearrangement Counselor Time in: 17:00 [facility] 05:01 PM Recorded Pressure: Ao, HR=63, Condition=Condition 1 (Aorta) Ao 102/62/81 05:02 PM HR=67 bpm, HEBT=402/67 mmhg, SpO2=96.0 %, Comment=nsr 05:04 PM Stent deployed @ 12 leif for 20 seconds 05:05 PM Stent balloon reinflated @ 16 leif for 15 seconds 05:06 PM Stent delivery system removed intact. 05:06 PM Time: 17:06 Nitroglycerin 200 mcg Intracoronary Given by Lianet Cao MD, [facility] thomas 05:07 PM HR=70 bpm, FZND=962/69 mmhg, SpO2=95.0 %, Comment=nsr 05:07 PM Guide catheter removed intact. 05:08 PM Pressure channel 1 zeroed. 05:08 PM Recorded Pressure: LV, HR=72, Condition=Condition 1 (Left Ventricle) LV 82/-1/0 05:09 PM Time: 16:53LOC: 4 = Oriented but drowsy thomas 05:09 PM Time: 16:53 Patient comfortable and pain free: Yes [facility] 05:09 PM 5Fr Pigtail catheter inserted over the wire [facility] thomas 05:09 PM Catheter selectively placed in left ventricle tsouthomas 05:09 PM Bolus angiogram of left Ventricle complete: 8 ml/sec for a total of 24 mls [facility] 05:09 PM Catheter removed [facility] 05:09 PM Recorded Pressure: LV, Ao, HR=61, Condition=Condition 1 (Left Ventricle) LV 87/-10/10, (Aorta) Ao 86/60/73 05:10 PM Recorded Pressure: Ao, HR=63, Condition=Condition 1 (Aorta) Ao 110/58/75 05:11 PM Bolus angiogram of right Femoral complete: 4 ml/sec for a total of 7 mls [facility] 05:11 PM images obtained [facility] 05:11 PM Guide wire removed intact. [facility] 05:12 PM HR=62 bpm, PWXO=401/71 mmhg, SpO2=98.0 % 05:13 PM Time: 17:13 Reopro Bolus: 12.9 ml Intravenous Given by Cathryn Wilson RN Rodrigez pump [facility] 05:13 PM Time: 17:13 Brilinta 180 mg Orally Given by Cathryn Wilson RN [facility] 05:14 PM Coronary Dominance: Left [facility] 05:16 PM Procedure completed at 17:15 [facility] 05:16 PM Did you address EVELYN flow and Dominance? Yes [facility] 05:16 PM Sign out completed: Radiation Dose 332 mGy Fluoro Time: 4.0 Isovue 370 - 200ml contrast 74 ml given by Lianet Cao MD, [facility]. Complications: NoneCardiac Rehab Consult needed: YesConfirmed administered medications: Yes [facility] 05:16 PM Isovue 370 - 200ml,1 Bottle(s) used. [facility] 05:16 PM Sheath left in place to be pulled on floor/holding areaV+Pad [facility] 05:16 PM Estimated Blood Loss: less than 20cc [facility] 05:16 PM Post ECG NSR [facility] 05:17 PM Post Blood Pressure 127/71 [facility] 05:17 PM 17:17 Post Pulses Bilateral DP & PT 2+ [facility] 05:17 PM HR=56 bpm, CDDN=767/64 mmhg, SpO2=98.0 %, Comment=nsr 05:18 PM Information taught Cardiac Cath and PCI [facility] 05:18 PM Education needs Procedure, Plan of Care, and Responsibilities of Patient in Care [facility] 05:18 PM Learning barriers :None [facility] 05:18 PM Education Methods Verbal [facility] 05:18 PM Education evaluation Able to repeat information [facility] 05:18 PM Site status No bleeding/hematoma - Rt Groin as reported by Sites, Jennifer RT (R) at 17:18 [facility] 05:18 PM Opsite applied [facility] 05:18 PM Plavix, Effient or Brilinta given Yes [facility] 05:18 PM Family placed in consult room. [facility] 05:18 PM Complications: None [facility] 05:18 PM Fluoro Time: 4 [facility] 05:19 PM Isovue 370 - 200ml contrast 74 ml given by Lianet Cao. [facility] 05:19 PM Radiation Dose 332 mGy [facility] 05:22 PM Report given to 2N RN Pt taken to 2N Room #6. 17:22 [facility] 05:22 PM Patient out of room: 17:22 [email or web address] Complications Complication None None Hemodynamics Pressures Site Systolic/A Wave Diastolic/V Wave Mean AO 102 62 81 LV 82 -1 0 LV 87 -10 10 AO 86 60 73 AO 110 58 75 Post Procedure Information Blood Pressure: 127/71 mmHg Rhythm: NSR Post procedural instructions were given Site Checks Time Location Status Staff Sheath In? Note 05:18 PM Rt Groin No bleeding/hematoma Sites, Jennifer RT (R) Pulses Time Site Pre-Procedure Post-Procedure Note Bilateral DP & PT 2+ Bilateral radial 2+ 5:17:00 PM Bilateral DP & PT 2+ Updated by Cathryn Wilson RN on 08/22/2017 5:23:22 PM electronically signed on 08/22/2017 5:29:43 PM with status of Final
[2017-08-22] MEDS ORDERED: Acetaminophen 325 MG TABLET PO PRN (17:40)
[2017-08-22] MEDS ORDERED: Nitroglycerin 0.4 MG TAB.SUBL SL PRN (17:40)
[2017-08-22] MEDS ORDERED: 0.9 % Sodium Chloride 1,000 ML IVC SCH (17:45)
[2017-08-22] MEDS ORDERED: *HR* OxyCODONE/APAP 5/325 TABLET PO PRN (18:54)
[2017-08-23 04:35] LABS: Hematocrit 44.5 % (37.5-50.1); Hemoglobin 14.9 g/dL (12.9-16.9); Mean Corpuscular HGB Conc 33.5 g/dL (31.6-35.5); Mean Corpuscular Hemoglobin 30.8 pg (28.0-33.3); Mean Corpuscular Volume 91.9 fL (83.0-100.0); Mean Platelet Volume 10.1 fL (9.4-12.4); Platelet Count 326 K/mcL (140-400); Red Blood Count 4.84 M/mcL (4.19-5.50); Red Cell Distribution Width 13.3 % (11.5-14.5)
[2017-08-23 04:49] LABS: BUN/Creatinine Ratio 20 (6-26); Blood Urea Nitrogen 18 mg/dL (6-20); Calcium 8.9 mg/dL (8.6-10.3); Carbon Dioxide 23 mEq/L (23-29); Chloride 111 mEq/L (98-107); Glucose 126 mg/dL (70-105); Osmolality,Calculated 291 (280-300); Sodium 139 mEq/L (136-145); eGFR For African Americans > 60 (> 60); eGFR For Non-African Americans > 60 (> 60)
[2017-08-23] MEDS: *HR* Heparin 5,000 UNIT/ML VIAL SQ SCH (06:26)
[2017-08-23] MEDS: Aspirin 81 MG TAB.CHEW PO SCH (08:18)
[2017-08-23 11:02] VITALS: BP 125/76
--- NOTE | 2017-08-23 11:53 | Cardiology Progress Note ---
Date of Encounter: 08/23/17 Time of Encounter: 11:51 Assessment and Plan (1) S/P coronary artery stent placement Current Visit: Yes Status: Acute LHC yesterday for abnormal stress test revealed severe 1 vessel CAD. EF 65%. Successful PTCA/MARGRET to pLAD. DAPT (ASA and Plavix) uninterrupted x 1 year. Pt verbalizes understanding. Continue Statin and BB. Right femoral access site healing well. No bleeding, hematoma or ecchymosis noted. Restrictions discussed. Cardiology signing off. Reconsult PRN. Follow-up as outpt in 3-4 weeks. Will coordinate. (2) Atrial tachycardia Current Visit: Yes Status: Acute Now resolved. PAT noted during stress test yesterday and on telemetry. Since LHC yesterday, no PAT has been noted. (3) CAD (coronary artery disease) Current Visit: Yes Status: Acute As above, s/p PCI to pLAD. ASA, Plavix, Statin, BB. Qualifiers: Coronary Disease-Associated Artery/Lesion type: [place] artery [place] vs. transplanted heart: [place] heart Associated angina: angina presence unspecified Qualified Code(s): I25.10 - Atherosclerotic heart disease of [place] coronary artery without angina pectoris Discussion w patient/family: The assessment and plan as outlined above was discussed with the patient and/or family members who expressed understanding and agreement. All questions were answered. Thank you for involving us in the care of your patient. Please call with any questions. I will discuss all the above with Dr. eNwton and make changes as necessary. Subjective Principal diagnosis: CAD s/p PCI Interval history: S/P LHC yesterday for abnormal stress test. LHC revealed severe 1 vessel CAD. EF 65%. Successful PTCA/MARGRET to pLAD. Pt denies chest pain or dyspnea overnight. No acute cardiac complaints. Objective Vital Signs, Last 4 Hours Temp Pulse Pulse Resp BP Pulse Ox 08/23/17 11:01 98.5 F 63 18 125/76 94 08/23/17 08:20 97.5 F L 70 75 18 126/70 95 Vital Signs Temp Pulse Pulse Resp BP Pulse Ox 08/23/17 11:01 98.5 F 63 18 125/76 94 08/23/17 08:20 97.5 F L 70 75 18 126/70 95 08/23/17 07:29 97.5 F L 70 18 126/70 95 18 04:26 64 20 95 18 04:02 98.2 F 61 20 106/76 95 18 00:30 97.6 F 70 16 95 18 00:00 70 16 129/51 95 18 23:23 97.6 F 20 145/79 94 18 23:15 102 16 152/92 95 18 22:45 82 16 141/77 96 18 22:30 77 16 107/73 96 08/22/17 22:15 72 15 148/71 95 08/22/17 22:00 83 16 136/101 95 08/22/17 21:45 75 75 16 137/84 93 08/22/17 21:22 84 84 16 126/84 95 18 21:16 16 104/80 96 08/22/17 21:12 73 73 151/84 95 08/22/17 21:06 78 78 16 143/90 96 08/22/17 21:03 87 87 16 151/64 95 18 19:58 64 18 135/91 98 18 18:52 98.1 F 64 20 128/71 97 18 18:30 97.9 F 60 60 20 138/82 96 18 18:15 97.9 F 65 65 18 134/86 96 18 18:00 97.9 F 57 57 18 123/77 97 18 17:50 97.9 F 60 60 18 136/78 96 18 17:46 97.9 F 58 18 136/83 95 18 17:45 97.9 F 60 59 18 131/83 96 18 17:40 97.9 F 59 59 18 136/83 96 18 14:53 98.1 F 56 18 126/77 94 Intake and Output 18 18 18 23:59 07:59 15:59 Intake Total 0 / 0 1000 / 1000 680 / 680 Output Total 250 / 250 700 / 700 0 / 0 Balance -250 / -250 300 / 300 680 / 680 Intake: IV Fluids 1000 / 1000 0.9 % Sodium Chloride 1,000 ML 1000 / 1000 @ 100 mls/hr IVC .Q10H [facility] Rx#: [id number] Oral 0 / 0 680 / 680 Output: Urine 250 / 250 700 / 700 0 / 0 Other: Meal Breakfast Percent of Meal Consumed 100% Weight 101.6 kg Patient Weight 08/23/17 23:59 Weight 101.6 kg General: Conversant, No Apparent Distress HEENT: Atraumatic, Normocephaly, Mucus Membranes Moist Neck: No JVD, Normal carotid pulses Cardiac: Reg Rate and Rhythm, Normal S1 and S2, No Murmur Lungs: Normal Breath Sounds, No Wheeze, Rales, Rhonchi Neuro: Alert and responsive, No focal deficits noted Abdomen: Soft, Non-Tender Skin: Other (right femoral access site healing well. No bleeding, hematoma or ecchymosis noted.) Musculoskeletal: No Chest Wall Tenderness Extremities: No Clubbing, No Cyanosis, No Edema, Normal Pulses Results 08/23/17 04:01 08/23/17 04:01 Short CBC 08/23/17 Range/Units 04:01 WBC 11.3 H (4.3-11.1) K/mcL Hgb 14.9 (12.9-16.9) g/dL Hct 44.5 (37.5-50.1) % Plt Count 326 (140-400) K/mcL BMP 08/23/17 Range/Units 04:01 Sodium 139 (136-145) mEq/L Potassium 4.0 (3.5-5.1) mEq/L Chloride 111 H (98-107) mEq/L Carbon Dioxide 23 (23-29) mEq/L BUN 18 (6-20) mg/dL Creatinine 0.90 (0.70-1.30) mg/dL Glucose 126 H (70-105) mg/dL Calcium 8.9 (8.6-10.3) mg/dL Cardiac Enzymes 08/23/17 Range/Units 04:01 Troponin I < 0.03 (< 0.04) ng/mL Impressions Abdomen/Pelvis CT 08/22/17 19:01 IMPRESSION: 1. No acute infective or inflammatory process. 2. Bibasilar subsegmental atelectasis in the lungs. D/ / Yoshi Soto MD / Yoshi Soto MD Interpreting Provider: Yoshi Soto MD Active Medications Acetaminophen (Tylenol) 650 mg PO Q6HR PRN PRN Reason: Mild Pain Stop: 02/21/18 17:41 Last Admin: 08/22/17 18:02 Dose: 650 mg Aspirin (Aspirin) 81 mg PO DAILY [facility] Stop: 02/21/18 09:01 Last Admin: 08/23/17 08:18 Dose: 81 mg Atorvastatin Calcium (Lipitor) 80 mg PO HS [facility] Stop: 02/21/18 21:01 Last Admin: 08/22/17 23:10 Dose: 80 mg Clopidogrel Bisulfate (Plavix) 75 mg PO DAILY [facility] Stop: 02/23/18 09:01 Heparin Sodium (Porcine) (Heparin) 5,000 unit SQ Q12HCO [facility] Stop: 02/20/18 18:01 Last Admin: 08/23/17 06:26 Dose: 5,000 unit Metoprolol Tartrate (Lopressor) 25 mg PO BID [facility] Stop: 02/21/18 21:01 Last Admin: 08/23/17 08:18 Dose: 25 mg Naloxone HCl (Narcan) 0.4 mg IVP Q2MIN PRN PRN Reason: SEE COMMENTS Stop: 02/20/18 12:59 Nitroglycerin (Nitroglycerin) 0.4 mg SL Q5MIN PRN PRN Reason: Chest Pain Stop: 02/21/18 17:41 Oxycodone/Acetaminophen (Percocet 5/325) 1 each PO Q6HR PRN PRN Reason: Pain Stop: 02/21/18 18:55 Last Admin: 08/22/17 19:15 Dose: 1 each - Imaging and Cardiology Stress Test: report reviewed Echo: report reviewed Cardiac cath: report reviewed - EKG Interpretation EKG results cardiology: other (12 hr tele AVG HR 68, SR, no significant pauses or arrhythmias) Consult Discharge Plan - Plan Instructions: Coronary Intravascular Stent Placement (DC) Additional Instructions: RISK FACTORS: STOP SMOKING: If you smoke, STOP. Smoking or tobacco use significantly increases your risk of heart disease because nicotine causes the arteries to narrow or constrict. It also causes fats to stick to the artery. Your chances of having a heart attack are greatly increased if you continue to smoke. For more information, call the education line for smoking cessation 6-234-MLYILAV EAT A LOW FAT/CHOLESTEROL/SODIUM DIET: This diet may help reduce your chances of having a heart attack. LIFTING: Avoid lifting anything more than 10 pounds for 5-7 days Prior to straining, laughing, sneezing and/or coughing, apply manual pressure directly over insertion site. ACTIVITY: You may walk or climb stairs as tolerated You can resume sexual activity as tolerated In general, you are encouraged to engage in a minimum of 30 minutes or more of moderate intensity physical activity, such as brisk walking, daily or at least 3 -4 times weekly BATHING Do not submerge the site into water (bath tub, hot tub, swimming pool) for 1 week. This can be a source for infection into the blood stream. You may shower after 24 hours SITE CARE: After 24 hours, you may remove the dressing and leave the site open to air. Keep the site clean and dry. Clean gently and pat dry. You can expect bruising and tenderness that gradually resolve within a week or two. Return to work as instructed per your physician Resume driving as instructed per physician Keep all scheduled follow up appointments Resume medications as instructed IMPORTANT: If prescribed a Platelet Aggregation Inhibitor such as, Plavix, Brilinta or Effient: Duration of therapy is minimum one year These medications are often used in combination with Aspirin in prevention of future heart attacks Never discontinue unless consult with your Data Virtualization Consultant STROKE (CVA) Risk factors for a stroke are: Age, cigarette smoking, diabetes, excessive alcohol consumption, family history, high blood pressure, overweight, physical inactivity, prior stroke, heart attack, diagnosis of carotid artery stenosis or other artery disease. Warning signs: Sudden numbness or weakness of the face, arm or leg; especially on one side of the body, sudden confusion, trouble speaking or understanding, sudden trouble seeing in one or both eyes, sudden trouble walking, dizziness, loss of balance or coordination, sudden severe headache with no cause. Call 911 or go to the Emergency Room. CONGESTIVE HEART FAILURE: If you have been diagnosed with Congestive Heart Failure (CHF) and your symptoms return, make an appointment with your physician Weigh yourself daily. Notify your physician if you have a weight gain of two or more pounds in one day or five or more pounds in one week. If you experience any difficulty breathing, please call 911 BLEEDING: Although the risk of bleeding is minimal, it can happen. If you have any bleeding from the site, apply firm pressure above the puncture site for 10-15 minutes. If the bleeding does not stop, continue manual pressure and call 911 Contact your physician if: You develop a fever greater than 101 degrees Fahrenheit Your site becomes reddened or has any drainage You have an increase in pain or burning at the site or if a large knot forms at the site. If you experience chest pain, shortness of breath, dizziness, or extreme tiredness, stop the activity and rest. Please notify your physicians office if you experience any of these symptoms and they are not relieved by rest please call 911! Referrals: Jacky Roque MD [Primary Care Provider] - 08/30/17 2:00 pm Lianet Cao MD [Partnered Physician] - (Office will call patient at home with follow up appointment)
--- NOTE | 2017-08-23 13:35 | Discharge Summary ---
- NOTES TO OUTPATIENT PROVIDER Notes to Outpatient Provider: Received PTCA/stent to pLAD, on ASA, Plavix, beta jeremy Date of Encounter: 08/23/17 Time of Encounter: 09:15 - Discharge Diagnosis (1) Chest pain Priority: Primary Status: Acute Qualifiers: Chest pain type: unspecified Qualified Code(s): R07.9 - Chest pain, unspecified (2) CAD (coronary artery disease) Priority: Primary Status: Chronic Qualifiers: Coronary Disease-Associated Artery/Lesion type: [place] artery [place] vs. transplanted heart: [place] heart Associated angina: with unstable angina Qualified Code(s): I25.110 - Atherosclerotic heart disease of [place] coronary artery with unstable angina pectoris Hospital course: Mr. Wilson is a 42 year old male with history of tobacco abuse, who presented with left-sided chest pain. Initial EKG showed some ST depression in V3 per previous notes. He was placed on telemetry monitoring, serial troponins remained negative. He was started on aspirin, beta jeremy and statin. Nuclear stress test was done which showed large sized, mostly reversible defect in the mid anterior, anteroseptal and apical segments, suggestive of ischemia. Cardiology was consulted and patient underwent left heart catheterization, which showed severe 1 vessel coronary artery disease and received PTCA/drug- eluting stent in proximal LAD. Patient is currently medically stable for discharge with outpatient cardiology follow-up. He is explained about the importance of uninterrupted dual antiplatelet therapy for 1 year, he is being discharged on aspirin and Plavix. Discharge discussed with: patient - Time Spent with Patient Total time spent providing and/or coordinating discharge services: Greater than 30 minutes (40 min) - Discharge Medications Prescriptions: Aspirin 81 mg PO DAILY #30 tab.chew Atorvastatin [Lipitor] 80 mg PO HS #60 tablet Clopidogrel [Plavix] 75 mg PO DAILY #30 tablet Metoprolol [Lopressor] 25 mg PO BID #60 tablet Home Medications: Aspirin 81 mg PO DAILY #30 tab.chew 08/23/17 [Rx] Atorvastatin [Lipitor] 80 mg PO HS #60 tablet 08/23/17 [Rx] Clopidogrel [Plavix] 75 mg PO DAILY #30 tablet 08/23/17 [Rx] Metoprolol [Lopressor] 25 mg PO BID #60 tablet 08/23/17 [Rx] Allergies/Adverse Reactions: 3 Allergy/AdvReac Type Severity Reaction Status Date / Time azithromycin [From Zithromax] Allergy Rash Verified 08/21/17 10:47 Date of admission: 08/23/17 08:14 Primary care physician: Jacky Roque MD Discharging clinician: Carmen Frazier Anticipated date of discharge: 08/23/17 - Constitutional Vitals: Temp Pulse Resp BP Pulse Ox 98.5 F 63 18 125/76 94 08/23/17 11:01 08/23/17 11:01 08/23/17 11:01 08/23/17 11:01 08/23/17 11:01 General appearance: Present: cooperative, A&O X 3, answers questions appropriately - Respiratory Respiratory exam: Present: CTAB. Absent: accessory muscle use, rales, rhonchi, wheezes - Cardiovascular Cardiovascular exam: Present: RRR, +S1, +S2. Absent: diastolic murmur, gallop, rubs, systolic murmur - Patient Status Disposition: Home, Self-Care Condition: Good Functional capacity at discharge: independent ambulation Overall status at discharge: patient is progressing back to baseline - Discharge Instructions Instructions: Narcotic-Analgesic and Aspirin (By mouth), Metoprolol (By mouth) , Atorvastatin (By mouth), Clopidogrel (By mouth), Chest Pain (DC), Coronary Intravascular Stent Placement (DC) Follow Up With: Jacky Roque MD [Primary Care Provider] - 08/30/17 2:00 pm Lianet Cao MD [Partnered Physician] - (Office will call patient at home with follow up appointment) Additional Instructions: RISK FACTORS: STOP SMOKING: If you smoke, STOP. Smoking or tobacco use significantly increases your risk of heart disease because nicotine causes the arteries to narrow or constrict. It also causes fats to stick to the artery. Your chances of having a heart attack are greatly increased if you continue to smoke. For more information, call the education line for smoking cessation 1-048-MGILEKP EAT A LOW FAT/CHOLESTEROL/SODIUM DIET: This diet may help reduce your chances of having a heart attack. LIFTING: Avoid lifting anything more than 10 pounds for 5-7 days Prior to straining, laughing, sneezing and/or coughing, apply manual pressure directly over insertion site. ACTIVITY: You may walk or climb stairs as tolerated You can resume sexual activity as tolerated In general, you are encouraged to engage in a minimum of 30 minutes or more of moderate intensity physical activity, such as brisk walking, daily or at least 3 -4 times weekly BATHING Do not submerge the site into water (bath tub, hot tub, swimming pool) for 1 week. This can be a source for infection into the blood stream. You may shower after 24 hours SITE CARE: After 24 hours, you may remove the dressing and leave the site open to air. Keep the site clean and dry. Clean gently and pat dry. You can expect bruising and tenderness that gradually resolve within a week or two. Return to work as instructed per your physician Resume driving as instructed per physician Keep all scheduled follow up appointments Resume medications as instructed IMPORTANT: If prescribed a Platelet Aggregation Inhibitor such as, Plavix, Brilinta or Effient: Duration of therapy is minimum one year These medications are often used in combination with Aspirin in prevention of future heart attacks Never discontinue unless consult with your [facility] STROKE (CVA) Risk factors for a stroke are: Age, cigarette smoking, diabetes, excessive alcohol consumption, family history, high blood pressure, overweight, physical inactivity, prior stroke, heart attack, diagnosis of carotid artery stenosis or other artery disease. Warning signs: Sudden numbness or weakness of the face, arm or leg; especially on one side of the body, sudden confusion, trouble speaking or understanding, sudden trouble seeing in one or both eyes, sudden trouble walking, dizziness, loss of balance or coordination, sudden severe headache with no cause. Call 911 or go to the Emergency Room. CONGESTIVE HEART FAILURE: If you have been diagnosed with Congestive Heart Failure (CHF) and your symptoms return, make an appointment with your physician Weigh yourself daily. Notify your physician if you have a weight gain of two or more pounds in one day or five or more pounds in one week. If you experience any difficulty breathing, please call 911 BLEEDING: Although the risk of bleeding is minimal, it can happen. If you have any bleeding from the site, apply firm pressure above the puncture site for 10-15 minutes. If the bleeding does not stop, continue manual pressure and call 911 Contact your physician if: You develop a fever greater than 101 degrees Fahrenheit Your site becomes reddened or has any drainage You have an increase in pain or burning at the site or if a large knot forms at the site. If you experience chest pain, shortness of breath, dizziness, or extreme tiredness, stop the activity and rest. Please notify your physicians office if you experience any of these symptoms and they are not relieved by rest please call 911! - Diet and Activity Activity: resume usual activities as tolerated Diet: low fat, low cholesterol, low salt diet
--- NOTE | 2017-08-24 15:13 | Electrocardiograph Report ---
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
--- NOTE | 2017-08-24 15:40 | Electrocardiograph Report ---
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
== END 2017-08-23 14:12 | disposition home or self-care (01) | DRG 247 ==
LOC: 3BNU 10:40 → EMEROO 10:40 → 3BNU 13:11 → 2NNU 08-22 17:36
PROVIDERS: ADMIT Family Medicine; ATTEND Family Medicine